=== PATIENT | male | born 1955 | race Caucasian/White ===

== ENCOUNTER 2025-04-12 12:05 | Inpatient (IN) | payer MEDICARE ==
[~2025-04-12] VITALS: Ht 182.9 cm; Wt 89.1 kg
[2025-04-12 12:09] VITALS: BP 145/81
[2025-04-12 12:52] LABS: BASO # 0.1 10*3/uL (0.0-0.1); BASO % 0.6 % (0.0-1.0); EOS # 0.3 10*3/uL (0.0-0.4); EOS % 2.9 % (1.0-4.0); MEAN CELL VOLUME 90.2 fl (80.0-94.0); MEAN CORPUSCULAR HGB 28.7 pg (27.0-31.0); MEAN PLATELET VOLUME 10.9 fl (9.6-12.3); MONO # 0.9 10*3/uL (0.1-1.0); MONO % 10.1 % (3.0-9.0); NEUT # 6.5 10*3/uL (2.3-7.9); NEUT % 71.6 % (47.0-73.0); NUCLEATED RED BLOOD CELL 0.0 % (0.0-0.0); NUCLEATED RED BLOOD CELL 0.0 10*3/uL (0.0-0.0); PLATELET COUNT AUTOMATED 209 10*3/uL (130-400); RED CELL DISTRI WIDTH 14.4 % (0-14.5)
[2025-04-12 13:19] LABS: BUN 9 mg/dl (9-23)
[2025-04-12 14:24] VITALS: BP 139/73
[2025-04-12 16:04] LABS: BILIRUBIN Negative (Negative); BLOOD Negative (Negative); CLARITY Clear (Clear); COLOR Yellow (Yellow); KETONE Trace (Negative); LEUKO ESTERASE Negative (Negative); NITRITE Negative (Negative); PH 6.5 (4.5-8.0); SPECIFIC GRAVITY 1.010 (1.001-1.030); UROBILINOGEN 2.0 E.U./dl (0.0-1.0)
[2025-04-12 16:14] LABS: EPITHELIAL CELLS 0-2; WBC 0-2 wbc/hpf (0-5)
[2025-04-12] MEDS ORDERED: BISACODYL 10 MG SUPP R PRN (16:20)
[2025-04-12] MEDS ORDERED: BISACODYL 5 MG TAB PO PRN (16:20)
[2025-04-12] MEDS ORDERED: Ondansetron Hydrochloride 4 MG/2 ML VIAL IV PRN (16:20)
[2025-04-12] MEDS ORDERED: Acetaminophen/Hydrocodone 5 MG/325 MG TABLET PO PRN (16:20)
[2025-04-12 16:34] VITALS: BP 131/76
[2025-04-12] MEDS ORDERED: LIPITOR20 MG PO (16:36)
[2025-04-12] MEDS ORDERED: VAZALORE81 MG PO (16:36)
[2025-04-12] MEDS ORDERED: VISTARIL25 MG PO (16:37)
[2025-04-12] MEDS ORDERED: ESCITALOPRAM OX20 MG PO (16:37)
[2025-04-12] MEDS ORDERED: LAMICTAL ODT25 MG MM (16:38)
[2025-04-12] MEDS ORDERED: MIRTAZAPINE7.5 MG PO (16:38)
[2025-04-12] MEDS ORDERED: RIVASTIGMINE TAR6 M1 PO (16:38)
[2025-04-12] MEDS ORDERED: ceFAZolin sodium 1 GM in SYRINGE INFUSION 10 ML IV SCH (18:00)
[2025-04-12] MEDS ORDERED: SODIUM CHLORIDE 0.9% 1,000 ML IV ONE (18:10)
[2025-04-12 20:21] VITALS: BP 135/79
[2025-04-12] MEDS ORDERED: diazePAM 10 MG/2 ML SYR IV ONE (21:15)
[2025-04-12 21:18] VITALS: BP 121/74
[2025-04-12] MEDS ORDERED: LAMOTRIGINE 100 MG TAB PO SCH (22:00)
[2025-04-12] MEDS ORDERED: RISPERDAL0.5 MG PO (22:13)
[2025-04-13] VITALS: BP 121/55
[2025-04-13 06:11] LABS: BASO # 0.1 10*3/uL (0.0-0.1); BASO % 0.7 % (0.0-1.0); EOS # 0.3 10*3/uL (0.0-0.4); EOS % 3.8 % (1.0-4.0); MEAN CELL VOLUME 90.2 fl (80.0-94.0); MEAN CORPUSCULAR HGB 28.5 pg (27.0-31.0); MEAN PLATELET VOLUME 10.8 fl (9.6-12.3); MONO # 0.9 10*3/uL (0.1-1.0); MONO % 11.1 % (3.0-9.0); NEUT # 5.5 10*3/uL (2.3-7.9); NEUT % 65.6 % (47.0-73.0); NUCLEATED RED BLOOD CELL 0.0 % (0.0-0.0); NUCLEATED RED BLOOD CELL 0.0 10*3/uL (0.0-0.0); PLATELET COUNT AUTOMATED 229 10*3/uL (130-400); RED CELL DISTRI WIDTH 14.4 % (0-14.5)
[2025-04-13 06:16] LABS: BUN 9 mg/dl (9-23); FREE T4 1.04 ng/dl (0.89-1.76)
[2025-04-13 06:23] LABS: SGPT/ALT < 7 U/L (5-49)
[2025-04-13 08:00] VITALS: BP 128/51
[2025-04-13] MEDS ORDERED: ESCITALOPRAM OXALATE 20 MG TAB PO SCH (10:00)
[2025-04-13] MEDS ORDERED: ATORVASTATIN CALCIUM 20 MG TAB PO SCH (10:00)
[2025-04-13] MEDS ORDERED: MUPIROCIN 15 GM TUBE T SCH (10:30)
[2025-04-13 12:00] VITALS: BP 124/68
[2025-04-13] MEDS ORDERED: IOHEXOL 300 MG/ML 100 ML VIAL IV ONE (12:15)
[2025-04-13 13:07] LABS: A/G RATIO 1.4 (0.7-1.7); BETA GLOBULIN 0.9 g/dL (0.7-1.3); GLOBULIN, TOTAL 2.5 g/dL (2.2-3.9)
[2025-04-13] MEDS ORDERED: FOAM BANDAGE 5X5 T ONE (13:29)
[2025-04-13 16:00] VITALS: BP 112/89
[2025-04-14] VITALS: BP 130/66
[2025-04-14 06:55] LABS: LDH 184 U/L (120-246)
[2025-04-14 08:00] VITALS: BP 113/59
[2025-04-14] MEDS ORDERED: FOAM BANDAGE 5X5 T ONE (11:24)
[2025-04-14 12:00] VITALS: BP 121/84
[2025-04-14 16:00] VITALS: BP 129/63
[2025-04-14 20:00] VITALS: BP 122/69
[2025-04-14] MEDS ORDERED: TEMAZEPAM 15 MG CAP PO PRN (22:00)
[2025-04-15] VITALS: BP 117/65
[2025-04-15 07:11] LABS: BASO # 0.1 10*3/uL (0.0-0.1); BASO % 0.8 % (0.0-1.0); EOS # 0.3 10*3/uL (0.0-0.4); EOS % 4.5 % (1.0-4.0); MEAN CELL VOLUME 90.1 fl (80.0-94.0); MEAN CORPUSCULAR HGB 28.2 pg (27.0-31.0); MEAN PLATELET VOLUME 11.2 fl (9.6-12.3); MONO # 0.7 10*3/uL (0.1-1.0); MONO % 9.6 % (3.0-9.0); NEUT # 4.7 10*3/uL (2.3-7.9); NEUT % 63.3 % (47.0-73.0); NUCLEATED RED BLOOD CELL 0.0 % (0.0-0.0); NUCLEATED RED BLOOD CELL 0.0 10*3/uL (0.0-0.0); PLATELET COUNT AUTOMATED 234 10*3/uL (130-400); RED CELL DISTRI WIDTH 14.5 % (0-14.5)
[2025-04-15 07:46] LABS: BUN 11 mg/dl (9-23)
[2025-04-15 08:00] VITALS: BP 128/71
[2025-04-15 12:00] VITALS: BP 112/59
[2025-04-15 16:00] VITALS: BP 127/66; BP 147/68
[2025-04-15 20:00] VITALS: BP 123/60
[2025-04-16] VITALS: BP 113/64
[2025-04-16 07:34] LABS: BUN 10 mg/dl (9-23)
[2025-04-16 08:00] VITALS: BP 125/76
[2025-04-16 12:00] VITALS: BP 113/74
[2025-04-16] MEDS ORDERED: FOAM BANDAGE 5X5 T ONE (12:28)
[2025-04-16 15:55] VITALS: BP 134/64
[2025-04-16 20:00] VITALS: BP 149/76
[2025-04-17] VITALS: BP 113/62
[2025-04-17 07:01] LABS: BUN 13 mg/dl (9-23)
[2025-04-17 08:00] VITALS: BP 129/76
[2025-04-17 12:00] VITALS: BP 120/59
[2025-04-17 16:00] VITALS: BP 116/61
[2025-04-17 20:00] VITALS: BP 124/71
[2025-04-18] VITALS: BP 129/70
[2025-04-18 08:00] VITALS: BP 130/66
[2025-04-18 12:06] VITALS: BP 106/54; BP 99/56
[2025-04-18] MEDS ORDERED: LAMOTRIGINE100 MG PO (13:27)
[2025-04-18] MEDS ORDERED: DOXYCYCLINE HY100 M3 PO (13:27)
[2025-04-18] MEDS ORDERED: TEMAZEPAM15 M1 PO (13:27)
[2025-04-18] MEDS ORDERED: FOAM BANDAGE 5X5 T ONE (14:54)
== END 2025-04-18 16:25 | DRG 603 ==
LOC: ED 12:05 → EDHOLD 15:48 → 5E 15:48 → 4E 17:26 → EDHOLD 18:43 → 5E 19:31
PROVIDERS: Emergency Medicine; Physician Assistant; Student in an Organized Health Care Education/Training Program; ADMIT Internal Medicine; ATTEND Internal Medicine
DX: L03.115 Cellulitis of right lower limb (principal); M89.8X9 Other specified disorders of bone, unspecified site; S30.0XXA Contusion of lower back and pelvis, initial encounter; X58.XXXA Exposure to other specified factors, initial encounter; R73.9 Hyperglycemia, unspecified; G47.00 Insomnia, unspecified; F31.9 Bipolar disorder, unspecified; S06.9X0A Unspecified intracranial injury without loss of consciousness, initial encounter; Y93.89 Activity, other specified; Y92.89 Other specified places as the place of occurrence of the external cause; Y99.8 Other external cause status